=== PATIENT | male | born 1975 | race Caucasian/White ===

== ENCOUNTER 2017-02-11 13:51 | Emergency (ER) | payer OTHER ==
[2017-02-11 14:30] VITALS: TEMP 97.9; BMI 24.3
[2017-02-11] MEDS ORDERED: ASPIRIN 81 MG CHEWABLE TABLETS PO ONE (14:31)
[2017-02-11] MEDS ORDERED: PANTOPRAZOLE SODIUM 40 MG in SODIUM CHLORIDE 100 ML IVPB ONE (14:31)
[2017-02-11] MEDS ORDERED: PANTOPRAZOLE SODIUM 40 MG/100 ML BAG IVPB ONE (14:45)
[2017-02-11] MEDS ORDERED: ASPIRIN 81 MG CHEWABLE TABLETS ONE (14:45)
[2017-02-11 14:46] LABS: BASOPHIL 0.7 % (0-2.0); EOSINOPHIL 2.2 % (0-4.5); MCHC 34.2 g/dl (32.0-35.9); MEAN CELL VOLUME 93.7 fl (80-96); MEAN PLT VOLUME 7.4 fl (7.5-11.1); NEUTROPHILS 58.3 % (42.8-82.8); PLATELET COUNT 219 K/MM3 (134-434); RDW 12.6 % (11.9-15.9); WHITE BLOOD COUNT 5.8 K/mm3 (4.0-10.0)
--- NOTE | 2017-02-11 14:52 | PDOC ---
History of Present Illness - General Chief Complaint: Chest Pain Stated Complaint: CHEST PAIN Time Seen by Provider: 02/11/17 14:03 History Source: Patient Exam Limitations: No Limitations - History of Present Illness Initial Comments: 02/11/17 15:00 41-year-old male with past medical history of right lung resection along with present smoking history arrives in the ED with complaints of constant chest tightness to the midsternal region with intermittent palpitations since last evening. Patient states took no medication for the above and decided come to the ER since symptoms continued today. Patient denies cardiac history recent travel, recent illness, shortness of breath, cough, fever, chills thyroid disorders, recent weight change, or medication use. Patient does state previous acid reflux secondary to alcohol use and opiate use. Patient denies presently both with the above. Patient has no other complaints at this time. Presenting Symptoms: Chest Pain Timing/Duration: reports: constant Severity/Quality: reports: mild, sharp, tightness Location: reports: substernal Chest Pain Radiation: reports: no radiation Activities at Onset: reports: none Prior Chest Pain/Cardiac Workup: reports: No prior chest pain Nitro Today/Relief: Yes: no nitro taken today Aspirin Received prior to arrival (Core Measure): Yes: no aspirin today, provided by ED (162 mg ) Associated Symptoms: Yes: Chest Pain/pressure, Palpitations Past History - Travel Traveled outside of the country in the last 30 days: No Close contact w/someone who was outside of country & ill: No - Past Medical History Allergies/Adverse Reactions: Allergies Allergy/AdvReac Type Severity Reaction Status Date / Time No Known Allergies Allergy Verified 02/11/17 14:02 Home Medications: Ambulatory Orders Famotidine [Pepcid] 20 mg PO BID #30 tablet 02/11/17 COPD: No - Immunization History Immunization Up to Date: No - Suicide/Smoking/Psychosocial Hx Smoking History: Current every day smoker Have you smoked in the past 12 months: Yes Number of Cigarettes Smoked Daily: 20 Information on smoking cessation initiated: No 'Breaking Loose' booklet given: 02/01/14 Hx Alcohol Use: Yes (stopped 2 years ago) Drug/Substance Use Hx: No Substance Use Type: None Patient Lives Alone: No Lives with/in: spouse/SO Review of Systems - Review of Systems Able to Perform ROS?: Yes Constitutional: No: Symptoms Reported HEENTM: No: Symptoms Reported Respiratory: No: Symptoms reported Cardiac (ROS): Yes: Palpitations, Chest Tightness ABD/GI: No: Symptoms Reported : No: Symptoms Reported Musculoskeletal: No: Symptoms Reported Integumentary: No: Symptoms Reported Endocrine: No: Symptoms Reported Hematologic/Lymphatic: No: Symptoms Reported *Physical Exam - Vital Signs Last Vital Signs Temp Pulse Resp BP Pulse Ox 97.9 F 59 L 16 101/69 98 02/11/17 17:16 02/11/17 19:17 02/11/17 19:17 02/11/17 19:17 02/11/17 19:17 - Physical Exam General Appearance: Yes: Nourished, Appropriately Dressed. No: Apparent Distress HEENT: positive: EOMI, ANTON. negative: Pale Conjunctivae Neck: positive: Normal Thyroid, Supple Respiratory/Chest: positive: Lungs Clear, Normal Breath Sounds. negative: Chest Tender, Respiratory Distress, Accessory Muscle Use Cardiovascular: positive: Regular Rhythm, Regular Rate. negative: Murmur Gastrointestinal/Abdominal: positive: Soft. negative: Tenderness Integumentary: positive: Normal Color, Warm, Moist Neurologic: positive: Motor Strength 5/5 Heart Score/ECG Review - History History: Slightly suspicious - Electrocardiogram EKG: Normal - Age Age: </= 45 - Risk Factors Risk Factors Heart Score: Yes Smoking History Based on the list above the patient has:: 1-2 risk factors - Troponin Troponin: </= normal limit - Score Heart Score - Total: 1 - ECG Intrepretation Rhythm: Regular Rhythm (rate 65. ccasional PVC noted.No ST elevation/ depression. QTC 388 ms.) ED Treatment Course - LABORATORY CBC & Chemistry Diagram: 02/11/17 14:33 02/11/17 14:33 - ADDITIONAL ORDERS Additional order review: 02/11/17 14:33 RBC 4.74 MCV 93.7 MCHC 34.2 RDW 12.6 MPV 7.4 L Neutrophils % 58.3 Lymphocytes % 32.8 Monocytes % 6.0 Eosinophils % 2.2 Basophils % 0.7 - RADIOLOGY Radiology Studies Ordered: Category Date Time Status CHEST X-RAY PORTABLE* [RAD] Stat Radiology 02/11/17 14:31 Completed - Medications Given in the ED: ED Medications Discontinued Medications Generic Name Dose Route Start Last Admin Trade Name Freq PRN Reason Stop Dose Admin Aspirin 162 mg 02/11/17 14:31 02/11/17 14:53 Asa - PO 02/11/17 14:32 162 mg ONCE ONE Administration Pantoprazole Sodium 40 mg/ 100 mls @ 200 mls/hr 02/11/17 14:31 02/11/17 14:53 Sodium Chloride IVPB 02/11/17 15:00 200 mls/hr ONCE ONE Administration Medical Decision Making - Medical Decision Making 02/11/17 15:02 Patient here with continual midsternal chest tightness along with palpitations. Patient heart score 1. Patient was ordered for cardiac workup including chest x-ray, Protonix to rule out esophageal spasm secondary to history of gastritis and opiate abuse. 02/11/17 16:59 Laboratory Tests 02/11/17 02/11/17 14:33 14:33 WBC 5.8 Hgb 15.2 Hct 44.4 Plt Count 219 Neutrophils % 58.3 Sodium 140 Potassium 4.2 Chloride 107 Carbon Dioxide 26 Anion Gap 7 L BUN 18 Creatinine 0.8 Calcium 8.4 L Total Bilirubin 0.4 AST 22 ALT 36 Alkaline Phosphatase 65 Creatine Kinase 117 Troponin I < 0.02 Patient states feeling much better after receiving medication. Patient in for second troponin EKG at 6:30 PM. RN made aware. *DC/Admit/Observation/Transfer Diagnosis at time of Disposition: GERD (gastroesophageal reflux disease) - Discharge Dispostion Disposition: HOME Condition at time of disposition: Stable - Prescriptions Prescriptions: Famotidine [Pepcid] 20 mg PO BID #30 tablet - Referrals Referrals: Annabelle Lennon MD [Primary Care Provider] - - Patient Instructions Printed Discharge Instructions: DI for Gastroesophageal Reflux Disease (GERD), DI for Atypical Chest Pain Additional Instructions: Please take medications as prescribed. As discussed, you should follow up with your primary care doctor by the end of the week if symptoms persist. If you develop any new chest pain, shortness of breath, palpitations, pain to your left arm or jaw, or any new or worsening symptoms, please return to the ER. - Post Discharge Activity Forms/Work/School Notes: Back to Work
[2017-02-11 15:03] LABS: ANION GAP 7 (8-16); BILIRUBIN,TOTAL 0.4 mg/dL (0.2-1.0); CALCIUM 8.4 mg/dL (8.5-10.1); CO2 26 mmol/L (21-32); CREATININE 0.8 mg/dL (0.7-1.3); GLUCOSE,RANDOM 94 mg/dL (74-106); SGOT/AST 22 U/L (15-37); SGPT/ALT 36 U/L (12-78)
[2017-02-11 15:06] LABS: ALK PHOS 65 U/L (45-117); CPK 117 IU/L (39-308); TROPONIN I < 0.02 ng/ml (0.00-0.05)
[2017-02-11 19:09] LABS: CPK 99 IU/L (39-308); TROPONIN I < 0.02 ng/ml (0.00-0.05)
[2017-02-11 19:18] VITALS: BP 101/69; PULSE 59
--- NOTE | 2017-02-11 19:22 | PDOC ---
*Physical Exam - Vital Signs Last Vital Signs Temp Pulse Resp BP Pulse Ox 97.9 F 59 L 16 101/69 98 02/11/17 17:16 02/11/17 19:17 02/11/17 19:17 02/11/17 19:17 02/11/17 19:17 - Physical Exam Comments: 02/11/17 19:20 Sign-out received from outgoing ER provider Micheal. Pt interviewed and examined. Ancillary studies reviewed. Awaiting second troponin. Second troponin negative. Will discharge to home. 02/11/17 19:31 Discussed with patient discharge, patient states he does feel better and reports "I've been under a lot of stress lately, and I've been drinking tons of coffee, and I smoke too." He reports that he has been feeling very anxious due to financial demands as well as he is "fighting to get paid." Advised patient to f/u with primary care doctor by the end of the week if symptoms persist, patient verbalized understanding and agrees to plan. ED Treatment Course - LABORATORY CBC & Chemistry Diagram: 02/11/17 14:33 02/11/17 14:33 - ADDITIONAL ORDERS Additional order review: Laboratory Results 02/11/17 02/11/17 18:35 14:33 Sodium 140 Potassium 4.2 Chloride 107 Carbon Dioxide 26 Anion Gap 7 L BUN 18 Creatinine 0.8 Creat Clearance w eGFR > 60 Random Glucose 94 Calcium 8.4 L Total Bilirubin 0.4 AST 22 ALT 36 Alkaline Phosphatase 65 Creatine Kinase 99 117 Troponin I < 0.02 < 0.02 Total Protein 7.0 Albumin 4.0 02/11/17 14:33 RBC 4.74 MCV 93.7 MCHC 34.2 RDW 12.6 MPV 7.4 L Neutrophils % 58.3 Lymphocytes % 32.8 Monocytes % 6.0 Eosinophils % 2.2 Basophils % 0.7 - Medications Given in the ED: ED Medications Discontinued Medications Generic Name Dose Route Start Last Admin Trade Name Freq PRN Reason Stop Dose Admin Aspirin 162 mg 02/11/17 14:31 02/11/17 14:53 Asa - PO 02/11/17 14:32 162 mg ONCE ONE Administration Pantoprazole Sodium 40 mg/ 100 mls @ 200 mls/hr 02/11/17 14:31 02/11/17 14:53 Sodium Chloride IVPB 02/11/17 15:00 200 mls/hr ONCE ONE Administration *DC/Admit/Observation/Transfer Diagnosis at time of Disposition: GERD (gastroesophageal reflux disease) Qualifiers: Esophagitis presence: with esophagitis Qualified Code(s): K21.0 - Gastro- esophageal reflux disease with esophagitis - Discharge Dispostion Disposition: HOME Condition at time of disposition: Stable Admit: No - Prescriptions Prescriptions: Famotidine [Pepcid] 20 mg PO BID #30 tablet - Referrals Referrals: Annabelle Lennon MD [Primary Care Provider] - - Patient Instructions Printed Discharge Instructions: DI for Gastroesophageal Reflux Disease (GERD), DI for Atypical Chest Pain Additional Instructions: Please take medications as prescribed. As discussed, you should follow up with your primary care doctor by the end of the week if symptoms persist. If you develop any new chest pain, shortness of breath, palpitations, pain to your left arm or jaw, or any new or worsening symptoms, please return to the ER. - Post Discharge Activity Forms/Work/School Notes: Back to Work
--- NOTE | 2017-02-12 17:32 | EKG ---
Test Reason : Blood Pressure : / mmHG Vent. Rate : 053 BPM Atrial Rate : 053 BPM P-R Int : 188 ms QRS Dur : 086 ms QT Int : 404 ms P-R-T Axes : 041 005 024 degrees QTc Int : 379 ms SINUS BRADYCARDIA ANTEROSEPTAL INFARCT , AGE UNDETERMINED ABNORMAL ECG NO PREVIOUS ECGS AVAILABLE Confirmed by MURPHY GOLDBERG MD ([id number]) on 02/12/2017 5:31:49 PM Referred By: Confirmed By:MURPHY GOLDBERG MD
--- NOTE | 2017-02-12 17:33 | EKG ---
Test Reason : Blood Pressure : / mmHG Vent. Rate : 065 BPM Atrial Rate : 065 BPM P-R Int : 174 ms QRS Dur : 084 ms QT Int : 374 ms P-R-T Axes : 050 000 030 degrees QTc Int : 388 ms SINUS RHYTHM WITH OCCASIONAL PREMATURE VENTRICULAR COMPLEXES ANTEROSEPTAL INFARCT , AGE UNDETERMINED ABNORMAL ECG NO PREVIOUS ECGS AVAILABLE Confirmed by MURPHY GOLDBERG MD ([id number]) on 02/12/2017 5:32:40 PM Referred By: Confirmed By:MURPHY GOLDBERG MD
== END 2017-02-11 19:51 | disposition home or self-care (01) ==
LOC: JER 13:51
PROC: 3E033GC Introduction of Other Therapeutic Substance into Peripheral Vein, Percutaneous Approach (ICD-10-PCS; principal; 2017-02-11)
DX: K21.9 Gastro-esophageal reflux disease without esophagitis (principal); F17.210 Nicotine dependence, cigarettes, uncomplicated
CPT/HCPCS: 36415; 71010-TC; 80053; 82550; 84484; 85025; 93005; 93010; 96365; 99284-25